=== PATIENT | male | born 1960 | race Caucasian/White ===

== ENCOUNTER 2018-12-15 20:29 | Emergency (ER) | payer OTHER ==
[~2018-12-15] VITALS: Ht 172.7 cm; Wt 72.6 kg
[2018-12-15] MEDS ORDERED: PROMETH-CODEIN 65 ML PO (22:34)
[2018-12-15] MEDS ORDERED: ZITHROMAX200 MG/52 PO (22:34)
[2018-12-15] MEDS ORDERED: MUCINEX FAST-M180 M2 PO (22:34)
== END 2018-12-15 22:55 | disposition home or self-care (01) ==
LOC: ER 20:29
DX: J06.9 Acute upper respiratory infection, unspecified (principal)

== ENCOUNTER → 2021-04-04 | Emergency (ER) | payer OTHER ==
[~2021-04-04] VITALS: Ht 172.7 cm; Wt 78.9 kg
[~2021-04-04] MED LIST: MUCINEX FAST-M180 M2 PO; PROMETH-CODEIN 65 ML PO; ZITHROMAX200 MG/52 PO
== END | disposition home or self-care (01) ==
LOC: ER 20:42
DX: M79.672 Pain in left foot (principal); M77.52 Other enthesopathy of left foot and ankle

== ENCOUNTER 2021-11-28 21:38 | Emergency (ER) | payer OTHER ==
[~2021-11-28] VITALS: Ht 172.7 cm; Wt 78.9 kg
[2021-11-29] MEDS ORDERED: PERCOCET 5-3251 EACH PO (01:55)
== END 2021-11-29 02:08 | disposition home or self-care (01) ==
LOC: ER 21:38
DX: M25.571 Pain in right ankle and joints of right foot (principal); Z88.8 Allergy status to other drugs, medicaments and biological substances

== ENCOUNTER 2022-04-14 23:49 | Emergency (ER) | payer OTHER ==
[~2022-04-14] VITALS: Ht 172.7 cm; Wt 77.1 kg
[~2022-04-14 23:49] MED LIST changes: +PERCOCET 5-3251 EACH PO
[2022-04-15] MEDS ORDERED: CELEBREX200MG PO (03:54)
== END 2022-04-15 03:57 ==
LOC: ER 23:49
DX: M25.561 Pain in right knee (principal); M25.572 Pain in left ankle and joints of left foot; Z88.8 Allergy status to other drugs, medicaments and biological substances